=== PATIENT | male | born 1970 | race Caucasian/White ===

== ENCOUNTER 2017-05-21 22:07 | Emergency (ER) | payer MEDICARE, MEDICAID ==
[2017-05-21 22:25] VITALS: BP 121/77
--- NOTE | 2017-05-21 22:52 | ER Document Report ---
HPI - HPI Pain Level: 0 Notes: Patient is a 46-year-old male with a history of anxiety and panic attacks who presents the ED by EMS status post panic attack prior to arrival. Patient states that his panic attack lasted for 5-7 minutes and then resolved. Patient states that he did miss one dose of his medication for about 12 hours. Patient denies ever having any SI/HI. Patient states that his symptoms resolved when EMS was there and he was debating whether or not to come, but decided to come anyway. Patient psych provider is [facility]. Patient has no other concerns or complaints at this time. Denies any headache, fever, neck pain, URI , sore throat, chest pain, palpitations, syncope, cough, shortness of breath, wheeze, dyspnea, abdominal pain, nausea/vomiting/diarrhea, urinary retention, dysuria, hematuria, or rash. - ROS Notes: REVIEW OF SYSTEMS: CONSTITUTIONAL : Denies fever, chills, or sweats. Denies recent illness. EENT: Denies eye, ear, throat, or mouth pain or symptoms. Denies nasal or sinus congestion or discharge. Denies throat, tongue, or mouth swelling or difficulty swallowing. CARDIOVASCULAR: Denies chest pain. Denies palpitations or racing or irregular heart beat. RESPIRATORY: Denies cough, cold, or chest congestion. Denies shortness of breath, difficulty breathing, or wheezing. GASTROINTESTINAL: Denies abdominal pain or distention. Denies nausea, vomiting , or diarrhea. GENITOURINARY: Denies difficulty urinating, painful urination, burning, frequency, blood in urine, or discharge. MUSCULOSKELETAL: Denies back or neck pain or stiffness. Denies joint pain or swelling. SKIN: Denies rash, lesions or sores. NEUROLOGICAL: Denies confusion or altered mental status. Denies passing out or loss of consciousness. Denies dizziness or lightheadedness. Denies headache. Denies problems with gait or speech. Denies sensory loss, numbness, or tingling. Denies seizures. PSYCHIATRIC: see hpi ALL OTHER SYSTEMS REVIEWED AND NEGATIVE. Dictation was performed using [employer] voice recognition software Past Medical History - Social History Smoking Status: Unknown if Ever Smoked Family History: Reviewed & Not Pertinent Vertical Provider Document - CONSTITUTIONAL Agree With Documented VS: Yes Notes: PHYSICAL EXAMINATION: GENERAL: Well-appearing, well-nourished and in no acute distress. A&Ox4. Answers questions appropriately, calm and collected HEAD: Atraumatic, normocephalic. EYES: Pupils equal round and reactive to light, extraocular movements intact, sclera anicteric, conjunctiva are normal. ENT: Nares patent and without discharge. oropharynx clear without exudates. No tonsilar hypertrophy or erythema. Moist mucous membranes. NECK: Normal range of motion, supple without lymphadenopathy LUNGS: Breath sounds clear to auscultation bilaterally and equal. No wheezes rales or rhonchi. HEART: Regular rate and rhythm without murmurs, rubs, gallops. Musculoskeletal: FROM to passive/active. Strength 5+/5. Extremities: No cyanosis, clubbing, or edema b/l. Peripheral pulses 2+. Capillary refill less than 3 seconds. NEUROLOGICAL: MMSE intact. Cranial nerves grossly intact. Normal speech, normal gait. Normal sensory, motor exams PSYCH: Normal mood, normal affect. SKIN: Warm, Dry, normal turgor, no rashes or lesions noted. - RESPIRATORY O2 Sat by Pulse Oximetry: 96 Course - Re-evaluation Re-evalutation: 05/21/17 22:57 Patient is an afebrile, well-hydrated, 46-year-old male who presents to the ED with resolved anxiety/panic attack. Vitals are stable. PE is otherwise unremarkable for any focal neurological deficits. MMSE intact and patient appears very calm and collected during the exam. Patient states that he feels ready to go home and does not have any remaining anxiety. No SI/HI. Low suspicion for any other acute systemic emergent condition at this time. No imaging or lab work warranted at this time based on H&P. Patient to continue home medications. Conservative measures otherwise for symptoms. Patient states that he does have many coping mechanisms that work for him that he is able to apply and use. Patient to recheck in 3-5 days with [facility]. Recheck with your PCM in 3-5 days as well. Return to the ED with any worsening/concerning symptoms otherwise as reviewed in discharge. Patient is in agreement. - Vital Signs Vital signs: Temp Pulse Resp BP Pulse Ox 97.9 F 77 20 121/77 96 05/21/17 22:20 05/21/17 22:20 05/21/17 22:20 05/21/17 22:20 05/21/17 22:20 Discharge - Discharge Clinical Impression: Anxiety, Worried well Condition: Stable Disposition: HOME, SELF-CARE Instructions: Anxiety ([facility]) Additional Instructions: Maintain adequate fluid/food intake Healthy diet, exercise Continue home medications as directed Recheck with [facility] services in 3-5 days Recheck with your PCM in 3-5 days. Return to the ED with any worsening symptoms and/or development of fever, headache, chest pain, palpitations, syncope, shortness of breath, trouble breathing, abdominal pain, n/v/d, blood in stool/urine, loss of control of bowel /bladder, urinary retention, muscle weakness/paralysis, numbness/tingling, suicidal/homicidal thoughts/ideations, worsening panic attacks, or other worsening symptoms that are concerning to you. Referrals: [facility] [Provider Group] - Follow up in 3-5 days
== END 2017-05-21 22:59 | disposition home or self-care (01) ==
LOC: ER 22:07
DX: F41.9 Anxiety disorder, unspecified (principal); F41.0 Panic disorder [episodic paroxysmal anxiety]; Z79.899 Other long term (current) drug therapy
CPT/HCPCS: 99283

== ENCOUNTER 2017-11-27 02:56 | Emergency (ER) | payer MEDICARE, MEDICAID ==
--- NOTE | 2017-11-27 04:06 | ER Document Report ---
ED General - General Chief Complaint: Rectal Pain Stated Complaint: RECTAL PAIN Time Seen by Provider: 11/27/17 03:59 Mode of Arrival: Ambulatory Information source: Patient Notes: 47-year-old male with skin cancer, history of internal, external hemorrhoids since childhood, presents with complaint of rectal pain that started 2 days prior to arrival and concern for finding a piece of skin in the bathtub where he was performing sitz bath. Patient reports that his pain has greatly improved since yesterday. He denies prior history of hemorrhoidectomy. He denies bright red blood per rectum. TRAVEL OUTSIDE OF THE [place] IN LAST 30 DAYS: No - HPI Onset: Other Onset/Duration: Gradual, Better Quality of pain: Achy Severity: Mild Associated symptoms: None Exacerbated by: Denies Relieved by: Denies Similar symptoms previously: Yes Recently seen / treated by doctor: No - Related Data Allergies/Adverse Reactions: codeine Allergy (Verified 05/21/17 22:09) Sulfa (Sulfonamide Antibiotics) Allergy (Verified 05/21/17 22:09) Past Medical History - General Information source: Patient - Social History Smoking Status: Never Smoker Frequency of alcohol use: None Drug Abuse: None Lives with: Alone Family History: Reviewed & Not Pertinent Renal/ Medical History: Denies: Hx Peritoneal Dialysis Review of Systems - Review of Systems Notes: REVIEW OF SYSTEMS: CONSTITUTIONAL : Denies fever, chills, or sweats. Denies recent illness. Denies weight loss, recent hospitalizations. EENT: Denies visual changes, eye pain. Denies nasal or sinus congestion or discharge. Denies sore throat, oral lesions, difficulty swallowing. CARDIOVASCULAR: Denies chest pain. Denies palpitations. Denies lower extremity edema. RESPIRATORY: Denies cough, cold, or chest congestion. Denies shortness of breath, wheezing. GASTROINTESTINAL: Denies abdominal pain or distention. Denies nausea, vomiting , or diarrhea. Denies blood in vomitus, Denies black, tarry stools. Denies constipation. GENITOURINARY: Denies difficulty urinating, painful urination, frequency, blood in urine, or vaginal discharge. MUSCULOSKELETAL: Denies back or neck pain or stiffness. Denies joint pain or swelling. SKIN: Denies rash, lesions or sores. HEMATOLOGIC : Denies easy bruising or bleeding. LYMPHATIC: Denies swollen glands. NEUROLOGICAL: Denies confusion or altered mental status. Denies passing out or loss of consciousness. Denies dizziness or lightheadedness. Denies headache. Denies weakness or paralysis. Denies problems difficulty with ambulation, slurred speech. Denies sensory loss, numbness, or tingling. Denies seizures. PSYCHIATRIC: Denies anxiety or stress. Denies depression, suicidal ideation, or homicidal ideation. Denies visual or auditory hallucinations. Physical Exam - Vital signs Vitals: Temp Pulse Resp BP Pulse Ox 98.6 F 74 18 123/75 97 11/27/17 03:08 11/27/17 03:08 11/27/17 03:08 11/27/17 03:08 11/27/17 03:08 - Notes Notes: PHYSICAL EXAMINATION: GENERAL: Well-appearing, well-nourished and in no acute distress. HEAD: Atraumatic, normocephalic. EYES: Pupils equal round and reactive to light, extraocular movements intact, sclera anicteric, conjunctiva are normal. ENT: Nares patent, oropharynx clear without exudates. Moist mucous membranes. NECK: Normal range of motion, supple without lymphadenopathy LUNGS: Breath sounds clear to auscultation bilaterally and equal. No wheezes rales or rhonchi. HEART: Regular rate and rhythm without murmurs ABDOMEN: Soft, nontender, nondistended abdomen. No guarding, no rebound. No masses appreciated. Rectal: Multiple enlarged external and internal hemorrhoids that are easily reduced. Musculoskeletal: Normal range of motion, no pitting or edema. No cyanosis. NEUROLOGICAL: Cranial nerves grossly intact. Normal speech, normal gait. Normal sensory, motor exams PSYCH: Normal mood, normal affect. SKIN: Warm, Dry, normal turgor, no rashes or lesions noted. Course - Re-evaluation Re-evalutation: 47-year-old male with skin cancer, history of internal, external hemorrhoids since childhood, presents with complaint of rectal pain that started 2 days prior to arrival and concern for finding a piece of skin in the bathtub where he was performing sitz bath. Patient reports that his pain has greatly improved since yesterday. He denies prior history of hemorrhoidectomy. He denies bright red blood per rectum. Patient was seen by myself upon arrival. Vital signs were reviewed. Patient is afebrile, normotensive and not hypoxic. Patient does not appear toxic or dehydrated. They are in no acute distress. Previous medical records and nursing notes reviewed. Significant findings include multiple external and internal hemorrhoids that are easily reduced. 11/27/17 04:[address] Mcfarlane from surgery who advises to place lidocaine jelly on the area and have the patient sit on ice. He requests that the patient follow-up in his office next week. Patient reports that he has little pain. We were able to reduce the hemorrhoids. Patient was discharged home with Anusol and encouraged to follow-up with surgery as an outpatient. Patient provided the opportunity to ask questions, and express concerns. Discharge instructions discussed. Patient is agreeable with discharge home. Return indications explained and discussed with the patient who displays understanding. Patient encouraged to return to the emergency department immediately with any concerns. 11/27/17 21:59 11/27/17 21:59 - Vital Signs Vital signs: Temp Pulse Resp BP Pulse Ox 97.9 F 59 L 18 117/79 98 11/27/17 05:16 11/27/17 05:16 11/27/17 05:16 11/27/17 05:16 11/27/17 05:16 Discharge - Discharge Clinical Impression: Internal and external thrombosed hemorrhoids Condition: Good Disposition: HOME, SELF-CARE Instructions: HC Hemorrhoid Cream ([facility]), Hemorrhoids ([facility]), Incision of Thrombosed Hemorrhoids ([facility]) Additional Instructions: Follow up with your physician tomorrow for further care or return to the ED IMMEDIATELY if symptoms worsen or new concerns occur. If you cannot afford to follow up with your primary care physician a list of low cost clinics have been provided at the end of your discharge papers as well. Prescriptions: Hydrocortisone Acetate [Anusol Hc 25 mg Supp.rect] 1 supp.rect OR BID #14 supp.rect Referrals: TESHA MCFARLANE MD [ACTIVE STAFF] - Follow up in 3-5 days
[2017-11-27] MEDS ORDERED: LIDOCAINE 2% URO-JET 5 ML KIT MM ONE (04:15)
[2017-11-27 05:26] VITALS: BP 117/79
== END 2017-11-27 05:18 | disposition home or self-care (01) ==
LOC: ER 02:56
DX: K64.5 Perianal venous thrombosis (principal); K62.89 Other specified diseases of anus and rectum; C44.90 Unspecified malignant neoplasm of skin, unspecified; Z88.5 Allergy status to narcotic agent; Z88.2 Allergy status to sulfonamides
CPT/HCPCS: 99283; A9270; J3490

== ENCOUNTER 2017-12-15 19:23 | Emergency (ER) | payer MEDICARE, MEDICAID ==
--- NOTE | 2017-12-15 20:59 | ER Document Report ---
ED General - General Chief Complaint: Groin Pain Stated Complaint: RIGHT FLANK PAIN Time Seen by Provider: 12/15/17 20:16 TRAVEL OUTSIDE OF THE [place]. IN LAST 30 DAYS: No - HPI Notes: 47-year-old male presents with intermittent episodes of right groin pain for the past 4 days. He occasionally has noticed a lump in his right groin. Pain extends into his scrotum. He has some burning with urination, but no blood in urine. Denies penile discharge. Has had new sexual partners with unprotected sex. No scrotal swelling. Denies any back pain or abdominal pain. No nausea, vomiting, fever or chills. No similar pain in the past. - Related Data Allergies/Adverse Reactions: codeine Allergy (Verified 05/21/17 22:09) Sulfa (Sulfonamide Antibiotics) Allergy (Verified 05/21/17 22:09) Past Medical History - Social History Smoking Status: Current Every Day Smoker Chew tobacco use (# tins/day): No Frequency of alcohol use: None Drug Abuse: None Family History: Reviewed & Not Pertinent Patient has suicidal ideation: No Patient has homicidal ideation: No Pulmonary Medical History: Reports: Hx Pneumonia Renal/ Medical History: Reports: Hx Kidney Stones. Denies: Hx Peritoneal Dialysis Past Surgical History: Reports: Hx Appendectomy, Hx Bowel Surgery - 3 polyps removed 2014 Review of Systems - Review of Systems Notes: Constitutional: Negative for fever. HENT: Negative for sore throat. Eyes: Negative for visual changes. Cardiovascular: Negative for chest pain. Respiratory: Negative for shortness of breath. Gastrointestinal: Negative for abdominal pain, vomiting or diarrhea. Right groin pain and swelling Genitourinary: Positive for dysuria. No penile discharge Musculoskeletal: Negative for back pain. Skin: Negative for rash. Neurological: Negative for headaches, weakness or numbness. 10 point ROS negative except as marked above and in HPI. Physical Exam - Vital signs Vitals: Temp Pulse Resp BP Pulse Ox 97.8 F 67 17 110/74 98 12/15/17 19:28 12/15/17 19:28 12/15/17 19:28 12/15/17 19:28 12/15/17 19:28 - Notes Notes: PHYSICAL EXAMINATION: GENERAL: Well-appearing, well-nourished and in no acute distress. HEAD: Atraumatic, normocephalic. EYES: Pupils equal round and reactive to light, extraocular movements intact, conjunctiva are normal. ENT: nares patent, oropharynx clear without exudates. Moist mucous membranes. NECK: Normal range of motion, supple without lymphadenopathy LUNGS: Breath sounds clear to auscultation bilaterally and equal. No wheezes rales or rhonchi. HEART: Regular rate and rhythm, no chest wall tenderness ABDOMEN: Soft, nontender, normoactive bowel sounds. No guarding, no rebound. No masses appreciated. : Slight prominence to right groin with minimal tenderness. No crepitus, erythema, warmth, induration. Normal-appearing penis and scrotum. EXTREMITIES: Normal range of motion, no pitting or edema. No cyanosis. NEUROLOGICAL: Cranial nerves grossly intact. Normal speech, normal gait. Normal sensory and motor exams. PSYCH: Normal mood, normal affect. SKIN: Warm, Dry, normal turgor, no rashes or lesions noted. Course - Re-evaluation Re-evalutation: 12/15/17 20:59 Ultrasound, urine, and labs ordered. 12/15/17 23:18 Patient reports pain with erection. No abnormal exam findings appreciated. Workup unremarkable. No obvious hernia seen on ultrasound. Discussed possible small reducible hernia. Advise follow-up with surgery or urology. At this time will discharge with return precautions and follow-up recommendations. Verbal discharge instructions given a the bedside and opportunity for questions given. Medication warnings reviewed. Patient is in agreement with this plan and has verbalized understanding of return precautions and the need for primary care follow-up in the next 24-72 hours. - Vital Signs Vital signs: Temp Pulse Resp BP Pulse Ox 97.8 F 67 17 110/74 98 12/15/17 19:28 12/15/17 19:28 12/15/17 19:28 12/15/17 19:28 12/15/17 19:28 - Laboratory Result Diagrams: 12/15/17 20:50 12/15/17 20:50 Discharge - Discharge Clinical Impression: Groin pain Qualifiers: Laterality: right Qualified Code(s): R10.31 - Right lower quadrant pain Condition: Stable Disposition: HOME, SELF-CARE Additional Instructions: You might have a reducible hernia. Please follow-up with urology and/or surgery for further evaluation of your symptoms. Return for any worsening or concerning symptoms. Referrals: BARBI NEUMANN MD [ACTIVE STAFF] - Follow up as needed SUSANNE ALEXANDER II, MD [[facility]] - Follow up as needed
[2017-12-15 21:02] LABS: ABSOLUTE BASOPHILS # (AUTO) 0.1 10^3/uL (0.0-0.2); ABSOLUTE EOSINOPHILS # (AUTO) 0.1 10^3/uL (0.0-0.6); ABSOLUTE LYMPHOCYTES (AUTO) 2.2 10^3/uL (0.5-4.7); ABSOLUTE MONOCYTES (AUTO) 0.7 10^3/uL (0.1-1.4); ABSOLUTE NEUT (AUTO) 5.4 10^3/uL (1.7-8.2); BASOPHILS % (AUTO) 0.9 % (0-2); EOSINOPHILS % (AUTO) 1.2 % (0-6); HEMATOCRIT 43.1 % (37.9-51.0); HEMOGLOBIN 14.7 g/dL (13.5-17.0); LYMPHOCYTES % (AUTO) 25.6 % (13-45); MEAN CORPUSCULAR HEMOGLOBIN 30.2 pg (27.0-33.4); MEAN CORPUSCULAR HGB CONC 34.1 g/dL (32.0-36.0); MEAN CORPUSCULAR VOLUME 89 fl (80-97); MONOCYTES % (AUTO) 8.5 % (3-13); PLATELET COUNT 338 10^3/uL (150-450); RED BLOOD COUNT 4.86 10^6/uL (4.35-5.55); SEGMENTED NEUTROPHILS % (AUTO) 63.8 % (42-78); TOTAL CELLS COUNTED % (AUTO) 100 %; WHITE BLOOD COUNT 8.4 10^3/uL (4.0-10.5)
[2017-12-15 21:15] LABS: ANION GAP 11 (5-19); BLOOD UREA NITROGEN 9 mg/dL (7-20); CALCIUM 9.3 mg/dL (8.4-10.2); CARBON DIOXIDE 28 mmol/L (22-30); CHLORIDE 105 mmol/L (98-107); GLUCOSE 88 mg/dL (75-110); POTASSIUM 4.4 mmol/L (3.6-5.0); SODIUM 144.3 mmol/L (137-145)
--- NOTE | 2017-12-15 21:56 | RADIOLOGY REPORT (SQ) ---
EXAM DESCRIPTION: U/S NON-OB PELVIS LTD W/O DOP COMPLETED DATE/TIME: 12/15/2017 9:47 pm REASON FOR STUDY: right groin pain COMPARISON: None. TECHNIQUE: Dynamic and static grayscale images acquired of the localized site of clinical concern an d recorded on PACS. Additional selected color Doppler and spectral images recorded. SITE OF CONCERN: Right groin LIMITATIONS: None. FINDINGS: SKIN AND SUBCUTANEOUS TISSUES: No masses. No fluid collections. No edema. No foreign bennett s. DEEP SOFT TISSUES/MUSCLES: No masses. No fluid collections. No edema. VASCULAR: No increased or decreased vascularity. No occlusions. OTHER: No other significant finding. IMPRESSION: NO SOFT TISSUE MASS, FLUID COLLECTION, OR FOREIGN BODY. TECHNICAL DOCUMENTATION: JOB ID: [id number] [employer]- All Rights Reserved Reading location - IP/workstation name: [email or web address]
[2017-12-15 22:49] LABS: APPEARANCE,URINE CLEAR; BILIRUBIN,URINE NEGATIVE (NEGATIVE); COLOR,URINE YELLOW; GLUCOSE, URINE NEGATIVE (NEGATIVE); KETONES,URINE NEGATIVE (NEGATIVE); LEUKOCYTE ESTERASE,URINE NEGATIVE (NEGATIVE); NITRITE,URINE NEGATIVE (NEGATIVE); PROTEIN,URINE NEGATIVE (NEGATIVE); UROBILINOGEN,URINE NEGATIVE mg/dL (<2.0)
[2017-12-15 23:07] LABS: CHLAM PCR NOT DETECTED (NOT DETECT); GON PCR NOT DETECTED (NOT DETECT)
[2017-12-15 23:29] VITALS: BP 115/78
== END 2017-12-15 23:29 | disposition home or self-care (01) ==
LOC: ER 19:23
DX: R10.31 Right lower quadrant pain (principal); R30.9 Painful micturition, unspecified; F17.200 Nicotine dependence, unspecified, uncomplicated
CPT/HCPCS: 36415; 76857; 80048; 81001; 85025; 87491; 87591; 99283

== ENCOUNTER 2017-12-28 19:59 | Emergency (ER) | payer MEDICARE, MEDICAID ==
[2017-12-28] MEDS ORDERED: DIPH/PERTUSS(ACELL)/TETANUS VAC/PF 0.5 ML SYR (>=10YO) IM ONE (21:07)
[2017-12-28 21:08] VITALS: BP 117/74
--- NOTE | 2017-12-28 21:11 | ER Document Report ---
HPI - HPI Pain Level: 1 Context: Patient is a 47-year-old male with complaint of wounds to his right ankle. It has been there for 7 days. It appears to be healing well. Patient reports that he needs a Tdap as he cut his leg on metal. Patient was seen in urgent care where they told him that they did not have any tetanus shots in their facility. - CONSTITUTIONAL Constitutional: DENIES: Fever, Chills - NEURO Neurology: DENIES: Headache, Weakness, Vision blurred, Dizzinesss / Vertigo Past Medical History - General Information source: Patient - Social History Smoking Status: Current Every Day Smoker Frequency of alcohol use: None Drug Abuse: None Family History: Reviewed & Not Pertinent Patient has suicidal ideation: No Patient has homicidal ideation: No Pulmonary Medical History: Reports: Hx Pneumonia Renal/ Medical History: Reports: Hx Kidney Stones. Denies: Hx Peritoneal Dialysis Past Surgical History: Reports: Hx Appendectomy, Hx Bowel Surgery - 3 polyps removed 2013 [facility] Provider Document - CONSTITUTIONAL Notes: PHYSICAL EXAMINATION: GENERAL: Well-appearing, well-nourished and in no acute distress. HEAD: Atraumatic, normocephalic. EYES: Pupils equal round extraocular movements intact, conjunctiva are normal. ENT: Nares patent NECK: Normal range of motion LUNGS: No respiratory distress Musculoskeletal: Normal range of motion NEUROLOGICAL: Normal speech, normal gait. PSYCH: Normal mood, normal affect. SKIN: Warm, Dry, normal turgor, no rashes or lesions noted. Healing wound to right medial ankle. - INFECTION CONTROL TRAVEL OUTSIDE OF THE [place] IN LAST 30 DAYS: No Course - Re-evaluation Re-evalutation: Tdap administered. Wound appears to be healing well however patient will be placed on Keflex due to mechanism in which the laceration was caused. Patient given ED return precautions and signs of infection to watch for. - Vital Signs Vital signs: Temp Pulse Resp BP Pulse Ox 97.7 F 64 18 117/74 99 12/28/17 21:05 12/28/17 21:05 12/28/17 21:05 12/28/17 21:05 12/28/17 21:05 Discharge - Discharge Clinical Impression: Need for Tdap vaccination Contusion Qualifiers: Encounter type: initial encounter Contusion area: lower leg Laterality: right Qualified Code(s): S80.11XA - Contusion of right lower leg, initial encounter Condition: Stable Disposition: HOME, SELF-CARE Instructions: Prophylactic Antibiotic ([facility]), Tetanus Immunization Given ([facility]) Additional Instructions: You were given a tetanus shot today in the emergency department. Please take the antibiotic as prescribed to help prevent infection to the wound. Please follow-up with your primary care provider for any additional concerns. Keep the wound clean and dry. Prescriptions: Cephalexin Monohydrate [Keflex 500 mg Capsule] 500 mg PO Q6H 5 Days #20 capsule
== END 2017-12-28 21:16 | disposition home or self-care (01) ==
LOC: ER 19:59
DX: S91.011D Laceration without foreign body, right ankle, subsequent encounter (principal); W27.8XXD Contact with other nonpowered hand tool, subsequent encounter; Z23 Encounter for immunization; F17.200 Nicotine dependence, unspecified, uncomplicated
CPT/HCPCS: 90471; 90715; 99282

== ENCOUNTER 2018-09-21 05:03 | Emergency (ER) | payer MEDICARE, MEDICAID ==
[2018-09-21] MEDS ORDERED: NORMAL SALINE 1000 ML 1,000 ML IV ONE (05:42)
--- NOTE | 2018-09-21 05:44 | ER Document Report ---
ED Medical Screen (RME) - General Chief Complaint: Dizziness Stated Complaint: DIZZINESS,UNSTEADY Time Seen by Provider: 09/21/18 05:33 Notes: 47-year-old male that comes to the emergency department chief complaint of 4 days of dizziness and spinning sensation. He states the spinning will occasionally make him nauseated. He denies head injury, fever, focal numbness or weakness, visual changes, vomiting, or headache. She reports a history of panic disorder on Klonopin. Mother at bedside. TRAVEL OUTSIDE OF THE [place] IN LAST 30 DAYS: No - Related Data Allergies/Adverse Reactions: codeine Allergy (Verified 12/28/17 21:07) Sulfa (Sulfonamide Antibiotics) Allergy (Verified 12/28/17 21:07) Past Medical History Pulmonary Medical History: Reports: Hx Pneumonia Renal/ Medical History: Reports: Hx Kidney Stones. Denies: Hx Peritoneal Dialysis Past Surgical History: Reports: Hx Appendectomy, Hx Bowel Surgery - 3 polyps removed 2013 Physical Exam - Vital signs Vitals: Temp Pulse Resp BP Pulse Ox 97.6 F 75 16 141/71 H 98 09/21/18 05:08 09/21/18 05:08 09/21/18 05:08 09/21/18 05:08 09/21/18 05:08 - Neurological Neuro grossly intact: Yes Cognition: Normal Orientation: AAOx4 Memo Coma Scale Eye Opening: Spontaneous [place]o Coma Scale Verbal: Oriented [place] Coma Scale Motor: Obeys Commands Memo Coma Scale Total: 15 Speech: Normal Cranial nerves: Normal Course - Re-evaluation Re-evalutation: Patient does not have any obvious neurological deficits other than ataxia secondary to vertigo/dizziness. He refuses any symptomatic medication including Zofran or meclizine. He states he is dehydrated and he does agree to IV fluids. Performing basic labs because of the dizziness. I have greeted and performed a rapid initial assessment of this patient. A comprehensive ED assessment and evaluation of the patient, analysis of test results and completion of the medical decision making process will be conducted by additional ED providers. - Vital Signs Vital signs: Temp Pulse Resp BP Pulse Ox 97.6 F 75 16 141/71 H 98 09/21/18 05:08 09/21/18 05:08 09/21/18 05:08 09/21/18 05:08 09/21/18 05:08
[2018-09-21 06:30] LABS: ABSOLUTE BASOPHILS # (AUTO) 0.1 10^3/uL (0.0-0.2); ABSOLUTE EOSINOPHILS # (AUTO) 0.3 10^3/uL (0.0-0.6); ABSOLUTE MONOCYTES (AUTO) 0.9 10^3/uL (0.1-1.4); BASOPHILS % (AUTO) 1.3 % (0-2); EOSINOPHILS % (AUTO) 4.4 % (0-6); HEMATOCRIT 42.5 % (37.9-51.0); HEMOGLOBIN 14.6 g/dL (13.5-17.0); LYMPHOCYTES % (AUTO) 41.1 % (13-45); MEAN CORPUSCULAR HEMOGLOBIN 30.4 pg (27.0-33.4); MEAN CORPUSCULAR HGB CONC 34.3 g/dL (32.0-36.0); MEAN CORPUSCULAR VOLUME 89 fl (80-97); MONOCYTES % (AUTO) 12.4 % (3-13); PLATELET COUNT 281 10^3/uL (150-450); RED CELL DISTRIBUTION WIDTH 13.8 % (11.5-14.0); SEGMENTED NEUTROPHILS % (AUTO) 40.8 % (42-78); TOTAL CELLS COUNTED % (AUTO) 100 %; WHITE BLOOD COUNT 7.3 10^3/uL (4.0-10.5)
[2018-09-21 06:58] LABS: ANION GAP 9 (5-19); BLOOD UREA NITROGEN 15 mg/dL (7-20); CALCIUM 9.5 mg/dL (8.4-10.2); CARBON DIOXIDE 30 mmol/L (22-30); CHLORIDE 102 mmol/L (98-107); GLUCOSE 89 mg/dL (75-110); POTASSIUM 4.6 mmol/L (3.6-5.0); SODIUM 141.2 mmol/L (137-145)
--- NOTE | 2018-09-21 07:02 | ER Document Report ---
Entered by KRYSTAL VALLADARES SCRIBE 09/21/18 0636 Acting as scribe for:KOLTON DWYER MD ED Dizziness/Weakness - General Chief Complaint: Dizziness Stated Complaint: DIZZINESS,UNSTEADY Time Seen by Provider: 09/21/18 05:33 Mode of Arrival: Ambulatory Information source: Patient Notes: Patient is a 47 year old male presenting to the emergency department complaining of dizziness. Patient states he becomes dizzy with rapid head movement that is resolved when sitting still. Patient states he is on Klonopin for his severe anxiety and declines any antihistamines or nausea medication due to "it possibly reacting to his medications". Patient denies a history of similar problems. TRAVEL OUTSIDE OF THE [place] IN LAST 30 DAYS: No - Related Data Allergies/Adverse Reactions: codeine Allergy (Verified 12/28/17 21:07) Sulfa (Sulfonamide Antibiotics) Allergy (Verified 12/28/17 21:07) Past Medical History - General Information source: Patient - Social History Smoking Status: Current Every Day Smoker Cigarette use (# per day): Yes Family History: Reviewed & Not Pertinent Patient has suicidal ideation: No Patient has homicidal ideation: No Pulmonary Medical History: Reports: Hx Pneumonia Renal/ Medical History: Reports: Hx Kidney Stones Psychiatric Medical History: Reports: Hx Anxiety Past Surgical History: Reports: Hx Appendectomy, Hx Bowel Surgery - 3 polyps removed 2013 Review of Systems - Review of Systems Constitutional: No symptoms reported EENT: No symptoms reported Cardiovascular: See HPI, Dizziness Respiratory: No symptoms reported Gastrointestinal: No symptoms reported Genitourinary: No symptoms reported Male Genitourinary: No symptoms reported Musculoskeletal: No symptoms reported Skin: No symptoms reported Hematologic/Lymphatic: No symptoms reported Neurological/Psychological: No symptoms reported -: Yes All other systems reviewed and negative Physical Exam - Vital signs Vitals: Temp Pulse Resp BP Pulse Ox 97.6 F 75 16 141/71 H 98 09/21/18 05:08 09/21/18 05:08 09/21/18 05:08 09/21/18 05:08 09/21/18 05:08 - Notes Notes: GENERAL: Alert, interacts well. No acute distress. HEAD: Normocephalic, atraumatic. EYES: Pupils equal, round, and reactive to light. Extraocular movements intact. No lateral gaze nystagmus with rapid head movement, reports momentary dizziness. ENT: Oral mucosa moist, tongue midline. NECK: Full range of motion. Supple. Trachea midline. LUNGS: Clear to auscultation bilaterally, no wheezes, rales, or rhonchi. No respiratory distress. HEART: Regular rate and rhythm. No murmurs, gallops, or rubs. ABDOMEN: Soft, non-tender. Non-distended. Bowel sounds present in all 4 quadrants. No guarding, rigidity, or rebound. EXTREMITIES: Moves all 4 extremities spontaneously. No edema, radial and dorsalis pedis pulses 2/4 bilaterally. No cyanosis. NEUROLOGICAL: Alert and oriented x3. Normal speech. PSYCH: Normal affect, normal mood. SKIN: Warm, dry, normal turgor. No rashes or lesions noted. Course - Vital Signs Vital signs: Temp Pulse Resp BP Pulse Ox 97.6 F 75 16 141/71 H 98 09/21/18 05:08 09/21/18 05:08 09/21/18 05:08 09/21/18 05:08 09/21/18 05:08 - Laboratory Result Diagrams: 09/21/18 06:01 09/21/18 06:01 Laboratory results interpreted by me: 09/21/18 06:01 Seg Neutrophils % 40.8 L Discharge - Discharge Clinical Impression: Vertigo Condition: Stable Disposition: HOME, SELF-CARE Additional Instructions: Vertigo You have been experiencing episodes of vertigo -- a whirling dizziness which may be accompanied by nausea and vomiting or staggering. Vertigo is often caused by an irritation of the inner ear, in which case it is called labyrinthitis. It can also be a symptom of a degenerating inner ear, nerve damage, or brain injury. Your physician has evaluated you to determine whether any further testing is necessary. Vertigo is often treated with dramamine or meclizine. These medications are helpful, but stronger medication may be needed if you are vomiting. Rest in bed. You should not drive or operate machinery until completely better. It may take one to three weeks for recovery. If there are new symptoms, such as decreased hearing or vision, severe headache, weakness or faintness, or confusion, call the physician. Follow-up with your primary care provider if you do not improve over the next 1 to 2 weeks. RETURN TO THE EMERGENCY ROOM IF ANY NEW OR WORSENING SYMPTOMS. Scribe Attestation: 09/21/18 06:36 I personally performed the services described in the documentation, reviewed and edited the documentation which was dictated to the scribe in my presence, and it accurately records my words and actions. I personally performed the services described in the documentation, reviewed and edited the documentation which was dictated to the scribe in my presence, and it accurately records my words and actions.
[2018-09-21 07:15] VITALS: BP 112/79
== END 2018-09-21 07:25 | disposition home or self-care (01) ==
LOC: ER 05:03
DX: R42 Dizziness and giddiness (principal); R00.2 Palpitations; Z79.899 Other long term (current) drug therapy; F17.210 Nicotine dependence, cigarettes, uncomplicated
CPT/HCPCS: 99284; 96360; 36415; 85025; 80048; J7030